=== PATIENT | male | born 1940 | race Caucasian/White ===

== ENCOUNTER 2023-08-23 15:11 | Emergency (ER) | payer OTHER, SELFPAY ==
[2023-08-23] VITALS (14 sets, daily range): BP systolic 108–139; BP diastolic 73–84; PULSE 74–98; RESP 18–24; TEMP 36.4; O2SAT 93–100; BMI 31.1
--- NOTE | 2023-08-23 15:13 | XR_ITS ---
The [place] [id number] Patient Name: NATY CHAVEZ MRN: [id number] date: 1940 Sex: M Assigned Patient Location: ED.MAIN Current Patient Location: ED.MAIN Accession/Order Number: [id number] Exam Date: 08/23/2023 15:00 Report Date: 08/23/2023 16:40 At the request of: ROCIO CASTANON Procedure: XR chest 1V EXAMINATION: XR chest 1V, , 08/23/2023 3:00 PM EST INDICATION: cva HISTORY: Ordering Provider Reason for Exam: cva Technologist Note: Additional: COMPARISON: None. TECHNIQUE: Chest x-ray: One view. FINDINGS: No pneumothorax, pleural effusion or focal airspace consolidation. Heart is normal in size. Bony thorax is unremarkable. XR/XR chest 1V IMPRESSION: No acute cardiopulmonary process. Electronically authenticated by: NIA CALDWELL Date: 08/23/2023 16:40
--- NOTE | 2023-08-23 15:13 | CT_ITS ---
[address] [address] Patient Name: NATY CHAVEZ MRN: [id number] date: 1940 Sex: M Assigned Patient Location: ED.MAIN Current Patient Location: Accession/Order Number: [id number] Exam Date: 08/23/2023 15:00 Report Date: 08/23/2023 17:24 At the request of: ROCIO CASTANON Procedure: CT angio head EXAM: CT angio head, CT angio neck HISTORY: Unresponsiveness. COMPARISON: Head CT without contrast on 08/23/2023. TECHNIQUE: Following IV administration of iodinated contrast, axial CT scans of the head and neck were obtained. MPR and MIP images images were obtained. Carotid stenosis is based on NASCET criteria. Dose reduction techniques were achieved by using automated exposure control and/or adjustment of mA and/or kV according to patient size and/or use of iterative reconstruction technique. FINDINGS: CTA OF THE HEAD: No major branch occlusion or significant intracranial stenosis. No aneurysm. Dural venous sinuses are patent. CTA OF THE NECK: No abnormal soft tissue mass in the neck. The visualized lungs are clear. Osseous structures are intact. 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 Aortic arch shows no aneurysm. The great vessels of the aortic arch show no significant stenosis. Vertebral arteries show no significant stenosis or dissection. Common carotids and internal carotids show no significant stenosis or dissection. CT/CT angio head IMPRESSION: No large vessel occlusion. No significant intracranial stenosis. Patent dural venous sinuses. Common carotids and internal carotids show no dissection or significant stenosis. Vertebral arteries show no dissection or significant stenosis. 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 Electronically authenticated by: GABBY CUNNINGHAM Date: 08/23/2023 17:24
--- NOTE | 2023-08-23 15:13 | CT_ITS ---
The [address] [address] Patient Name: NATY CHAVEZ MRN: [id number] date: 1940 Sex: M Assigned Patient Location: ER Current Patient Location: .[facility] Accession/Order Number: [id number] Exam Date: 08/23/2023 15:00 Report Date: 08/23/2023 16:06 At the request of: ROCIO CLARK Procedure: CT stroke head/brain wo con EXAM: CT stroke head/brain wo con; [id number] REASON FOR EXAM: cva COMPARISON: None. TECHNIQUE: Axial CT images of the head obtained without contrast. Multiplanar reformats generated at the scanner. Dose reduction technique used: Automated exposure control and/or adjustment of the mA and/or kV according to patient size and/or use of iterative reconstruction technique. FINDINGS: Parenchyma: -Moderate generalized cerebral volume loss. -No midline shift or mass effect. Basilar cisterns are patent. -No acute intracranial hemorrhage. -No loss of cortical ricci-white differentiation to indicate acute cortical infarct. -Small focal area of parenchymal hypoattenuation encephalomalacia in the vertex of the left anterior frontal lobe (for example series 7 image 23), most compatible with remote infarct. -Additional scattered areas of bilateral periventricular white matter predominant hypoattenuation, likely representing the sequela of chronic microvascular ischemic disease. Extra-axial spaces: No extra-axial fluid collection or hemorrhage. Ventricles: Within expected limits given degree of cerebral volume loss. Paranasal sinuses: Visualized paranasal sinuses are clear. Mastoid air cells: Visualized mastoids are clear. Orbits: A left scleral band is present. Osseous: No acute findings. Soft tissues: No acute abnormality. CT/CT stroke head/brain wo con IMPRESSION: 1. No acute intracranial abnormality demonstrated. 2. Small remote left frontal lobe infarct. Results discussed with Dr. Clark by Dr. Xiao at 08/23/2023 1:02 PM PST. Electronically authenticated by: LATONYA XIAO Date: 08/23/2023 16:06
--- NOTE | 2023-08-23 15:13 | ECG_ITS ---
The [facility] Test Date: 2023-08-23 Pat Name: NATY CHAVEZ Department: Room: - Gender: Male Benefits Technician: : 1940 Requested By: [id number] Order Number: [id number] Reading MD: JORDYN ANTON Measurements Intervals Tuttle Rate: 88 P: 60 OR: 158 QRS: 1 QRSD: 122 T: -52 QT: 358 QTc: 403 Interpretive Statements 1100 Sinus rhythm 1474 with frequent supraventricular premature complexes 2450 Right bundle branch block 9150 abnormal ECG No previous ECG available for comparison Electronically Signed On 08-25-2023 18:20:18 EST by JORDYN ANTON
--- NOTE | 2023-08-23 15:13 | CT_ITS ---
[address] [address] Patient Name: NATY CHAVEZ MRN: [id number] date: 1940 Sex: M Assigned Patient Location: ED.MAIN Current Patient Location: Accession/Order Number: [id number] Exam Date: 08/23/2023 15:00 Report Date: 08/23/2023 17:24 At the request of: ROCIO CASTANON Procedure: CT angio neck EXAM: CT angio head, CT angio neck HISTORY: Unresponsiveness. COMPARISON: Head CT without contrast on 08/23/2023. TECHNIQUE: Following IV administration of iodinated contrast, axial CT scans of the head and neck were obtained. MPR and MIP images images were obtained. Carotid stenosis is based on NASCET criteria. Dose reduction techniques were achieved by using automated exposure control and/or adjustment of mA and/or kV according to patient size and/or use of iterative reconstruction technique. FINDINGS: CTA OF THE HEAD: No major branch occlusion or significant intracranial stenosis. No aneurysm. Dural venous sinuses are patent. CTA OF THE NECK: No abnormal soft tissue mass in the neck. The visualized lungs are clear. Osseous structures are intact. 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 Aortic arch shows no aneurysm. The great vessels of the aortic arch show no significant stenosis. Vertebral arteries show no significant stenosis or dissection. Common carotids and internal carotids show no significant stenosis or dissection. CT/CT angio neck IMPRESSION: No large vessel occlusion. No significant intracranial stenosis. Patent dural venous sinuses. Common carotids and internal carotids show no dissection or significant stenosis. Vertebral arteries show no dissection or significant stenosis. 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 Electronically authenticated by: GABBY CUNNINGHAM Date: 08/23/2023 17:24
--- NOTE | 2023-08-23 15:16 | ED.GENADUL1 ---
HPI - General Adult General Chief complaint: Neuro Symptoms/Deficit Stated complaint: Unresponsive Time Seen by Provider: 08/23/23 15:13 History of Present Illness HPI narrative: Patient is a 82-year-old male who is presenting with significant stroke symptoms. Patient symptoms started at approximately 2?215PM. Patient had lunch in the house with his . 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 Patient is very healthy, takes no medications daily besides vitamin D. Patient was by himself for approximate 45 minutes. Patient's grandson went to check on his grandfather, he had stopped to combine by the the road. The patient was unresponsive, not moving his arms or legs. EMS was called. When EMS arrived, patient's vital signs within normal limits, sugar was normal. Patient was completely flaccid to the left arm and left leg. . All systems are negative except as noted/marked. All systems reviewed and otherwise negative. . Nurses note and vital signs reviewed and patient is not hypoxic. General: The patient appears Mild to moderate distress secondary to significant stroke. Patient is resting comfortably on cart. Patient is not toxic, is lethargic, and no listless Skin: Warm, dry, no pallor noted. There is no rash noted. No petechiae, purpura. Head: Normocephalic, atraumatic, Left facial droop Eye: Normal conjunctiva, no drainage, EOMI. PERRL Ears, Nose, Mouth, and Throat: oral mucosa is moist. Nares patent. Mouth without vesicles. Tongue is midline, Cardiovascular: Regular Rate and Rhythm, no murmur, gallop, rub Respiratory: Patient is in no distress, no accessory muscle use, lungs are clear to auscultation, no wheezing, rales or rhonchi Back: non-tender, no CVA tenderness bilaterally to percussion. No CT LS midline pain GI: soft, no tenderness to palpation, no masses appreciated. No rebound, guarding, or rigidity noted. No flank pain bilateral, No distention Musculoskeletal: Patient has full range of motion of all of the extremities, no motor, sensory, or focal neurological deficits Neurological: A&O x3, Garbled speech; NIH 18, 2 Points for left chiquis-neglect, 2 points for severe dysarthria, 2 points for loss of sensation to the left side of his body, 1 point for ataxia and one limb on the left, 2 points for some effort against gravity to the left leg, 4 points for no movement to his left arm, 2 points for partial paralysis; 2 forced gaze to the right. 1 for arousal to minor stimulation for level of consciousness Psychiatric: Cooperative Related Data Home Medications Medication Instructions Recorded Confirmed No Known Home Medications 08/23/23 08/23/23 Allergies Allergy/AdvReac Type Severity Reaction Status Date / Time No Known Drug Allergies Allergy Verified 08/23/23 15:46 Exam Constitutional Vital Signs, click to edit/add: Last Vital Signs Temp 97.6 F 08/23/23 15:24 Pulse 86 08/23/23 16:25 Resp 24 08/23/23 16:06 BP 117/79 08/23/23 16:25 Pulse Ox 99 08/23/23 16:25 O2 Del Method Nasal Cannula 08/23/23 15:58 O2 Flow Rate 4 08/23/23 15:58 Course Vital Signs Vital signs: Vital Signs Temperature 97.6 F 08/23/23 15:24 Pulse Rate 74 08/23/23 15:24 Respiratory Rate 18 08/23/23 15:24 Blood Pressure 108/79 08/23/23 15:24 Pulse Oximetry 98 08/23/23 15:24 Oxygen Delivery Method Nasal Cannula 08/23/23 15:24 Oxygen Delivery Flow Rate 4 08/23/23 15:24 Temperature 97.6 F 08/23/23 15:24 Pulse Rate 86 08/23/23 16:25 Respiratory Rate 24 08/23/23 16:06 Blood Pressure 117/79 08/23/23 16:25 Pulse Oximetry 99 08/23/23 16:25 Oxygen Delivery Method Nasal Cannula 08/23/23 15:58 Oxygen Delivery Flow Rate 4 08/23/23 15:58 Medical Decision Making MDM Narrative Medical decision making narrative: Patient arrived to the Emergency Room at approximately 300-305PM When patient arrived, ABCs were assessed, and patient went to CT area patient had a CT of the head, also had a CTA of the head and neck. EMS stated the patient was completely flaccid to left arm left leg with forced right eye deviation when the arrived. Patient blood sugar and vital signs were within normal limits when they arrived at the scene. Patient was found in a combine by his grandson, approximately 45 minutes not seen the patient after eating lunch. Last known normal time was approximately 2-215pm. Patient was assessed briefly in the a.m. because they by myself, ABCs were assessed. When patient arrived into room 6, she'll protocols were done, and we are contacting the [facility] per medic a stroke team. [address] Romero, Stroke neurologist. Report was given to him, physical exam was discussed, patient was recommended to give TNKase/alteplase since TNKase is not available. Pharmacy was called to start making the medication. 1555 approximately I spoke to Dr. Locke. He is aware the patient and evaluated the patient on the stroke tell her about as well. He agreed with giving the alteplase. Patient will be sent to the CT perfusion scan for further evaluation and then the catheter lab if indicated. See nursing notes for documentation I went alteplase was started. Nicky pharmacist Had mixed and prepare the medication and the pharmacy for alteplase. She also was at bedside helping nursing staff with dosing/Program in the IV pump for alteplase. >30min Has been spent At bedside speaking to grandson, daughter, and . Patient lives at home with his . Multiple questions have been answered, they're very thankful for help and support. 1640 patient is being sent [facility] to the [facility], [place], Dr Locke is accepting physician. Critical care time 65 minutes exclusive from separate billable procedures that were performed. The following was considered in the determination of critical care but not limited to the level of medical decision making, intensive cardiac and/or respiratory monitoring, frequent vital sign monitoring, evaluation of laboratory studies, evaluation of radiographic studies, oxygen monitoring, and constant monitoring and speaking to family at bedside Lab Data Lab results reviewed: Yes I reviewed the patient's lab results Labs: Lab Results 08/23/23 Range/Units 16:00 WBC 7.7 (4.0-11.0) 10^3/uL RBC 4.99 (4.70-6.10) 10^6/uL Hgb 15.5 (14.0-18.0) g/dL Hct 47.3 (42.0-54.0) % MCV 94.8 H (80.0-94.0) fL MCH 31.1 (25.9-34.0) pg MCHC 32.8 (29.9-35.2) g/dL RDW 13.1 (11.0-15.0) % Plt Count 156 (150-450) 10^3/uL MPV 9.4 L (9.5-13.5) fL Neut % (Auto) 74.0 (43.0-75.0) % Lymph % (Auto) 14.8 L (20.5-60.0) % Power % (Auto) 10.0 (1.7-12.0) % Eos % (Auto) 0.6 L (0.9-7.0) % Baso % (Auto) 0.3 (0.2-2.0) % Neut # (Auto) 5.7 (1.4-6.5) 10^3/uL Lymph # (Auto) 1.1 L (1.2-3.8) 10^3/uL Power # (Auto) 0.8 (0.3-0.8) 10^3/uL Eos # (Auto) 0.1 (0.0-0.7) 10^3/uL Baso # (Auto) 0.0 (0.0-0.1) 10^3/uL Abs Immat Gran (auto) 0.02 (0.00-0.03) 10^3/uL Imm/Tot Granulo (auto) 0.3 (0.0-0.5) % PT 10.9 (9.0-11.6) sec INR 1.03 APTT 29.3 (22.3-36.2) sec Sodium 135 L (136-145) mmol/L Potassium 3.9 (3.5-5.1) mmol/L Chloride 105 (98-107) mmol/L Carbon Dioxide 24.6 (21.0-32.0) mmol/L Anion Gap 9.3 BUN 19.0 H (7.0-18.0) mg/dL Creatinine 1.42 H (0.70-1.30) mg/dL Est GFR ( Amer) 58 L (>=60) Est GFR (Non-Af Amer) 47 L (>=60) BUN/Creatinine Ratio 13.4 Glucose 86 (74-106) mg/dL Calcium 8.5 (8.5-10.1) mg/dL Total Bilirubin 0.3 (0.2-1.0) mg/dL AST 43 H (15-37) U/L ALT 15 L (16-63) U/L Alkaline Phosphatase 81 (46-116) U/L Troponin I High Sens 9.0 (4.0-76.1) pg/mL Total Protein 6.3 L (6.4-8.2) g/dL Albumin 3.0 L (3.4-5.0) g/dL Globulin 3.3 g/dL Albumin/Globulin Ratio 0.9 ECG Data Attestation: I personally reviewed and interpreted this ECG as follows: (EKG interpretation. Normal sinus rhythm at 88 beats a minute. Normal axis deviation. No acute ST elevation, no acute ectopy. Artifact noted. Right bundle-branch block noted. QTC 403.) Discharge Plan Discharge Chief Complaint: Neuro Symptoms/Deficit Clinical Impression: Acute CVA (cerebrovascular accident) Patient Disposition: [facility] Time of Disposition Decision: 16:37 [facility]
--- NOTE | 2023-08-23 15:29 | PC.NURSE ---
neuro cart at bedside at 1540 dr kanwal navarro at 1600 20 g to rt hand and 20 g to left hand
[2023-08-23] MEDS: 0.9 % SODIUM CHLORIDE 1,000 ML 1000 ML IV (16:11)
[2023-08-23 16:17] LABS: Basophils Percent Auto 0.3 % (0.2-2.0); Eosinophils Absolute Auto 0.1 10^3/uL (0.0-0.7); Eosinophils Percent Auto 0.6 % (0.9-7.0); Hematocrit 47.3 % (42.0-54.0); Hemoglobin 15.5 g/dL (14.0-18.0); Immature Granulocytes Abs Auto 0.02 10^3/uL (0.00-0.03); Immature Granulocytes Pct Auto 0.3 % (0.0-0.5); Lymphocytes Absolute Auto 1.1 10^3/uL (1.2-3.8); Lymphocytes Percent Auto 14.8 % (20.5-60.0); Mean Corpuscular HGB Conc 32.8 g/dL (29.9-35.2); Mean Corpuscular Hemoglobin 31.1 pg (25.9-34.0); Mean Corpuscular Volume 94.8 fL (80.0-94.0); Mean Platelet Volume 9.4 fL (9.5-13.5); Monocytes Absolute Auto 0.8 10^3/uL (0.3-0.8); Neutrophils Absolute Auto 5.7 10^3/uL (1.4-6.5); Platelet Count 156 10^3/uL (150-450); Red Blood Count 4.99 10^6/uL (4.70-6.10); Red Cell Distribution Width 13.1 % (11.0-15.0); White Blood Count 7.7 10^3/uL (4.0-11.0)
[2023-08-23 16:32] LABS: Alanine Aminotransferase 15 U/L (16-63); Albumin Globulin Ratio 0.9; Alkaline Phosphatase 81 U/L (46-116); Anion Gap 9.3; Aspartate Amino Transferase 43 U/L (15-37); BUN Creatinine Ratio 13.4; Bilirubin Total 0.3 mg/dL (0.2-1.0); Calcium 8.5 mg/dL (8.5-10.1); Carbon Dioxide 24.6 mmol/L (21.0-32.0); Chloride 105 mmol/L (98-107); Estimated GFR (African America 58 (>=60); Estimated GFR (Non-African Ame 47 (>=60); Globulin 3.3 g/dL; Glucose 86 mg/dL (74-106); INR 1.03; Partial Thromboplastin Time 29.3 sec (22.3-36.2); Potassium 3.9 mmol/L (3.5-5.1); Prothrombin Time 10.9 sec (9.0-11.6); Sodium 135 mmol/L (136-145); Total Protein 6.3 g/dL (6.4-8.2)
== END 2023-08-23 16:35 | disposition short-term general hospital (02) ==
PROVIDERS: Emergency Provider Emergency Medicine; PCP Nurse Practitioner Family
DX: I63.9 Cerebral infarction, unspecified (principal); R47.1 Dysarthria and anarthria; R27.0 Ataxia, unspecified; G83.24 Monoplegia of upper limb affecting left nondominant side; R29.718 NIHSS score 18
CPT/HCPCS: 36415; 70450; 70496; 70498; 71045; 80053; 84484; 85025; 85610; 85730; 86850; 86900; 86901; 93005; 96374; 99291; J2997; Q3014; Q9967